=== PATIENT | male | born 1935 | race Caucasian/White ===

== ENCOUNTER → 2016-11-09 | Outpatient (CLI) | payer OTHER, BC | LOC: BMCIMAGING 10:47 | PROVIDERS: ATTEND Physician Assistant | DX: S89.92XA Unspecified injury of left lower leg, initial encounter (principal) ==

== ENCOUNTER 2017-01-22 16:01 | Inpatient (IN) | payer OTHER, BC ==
[2017-01-22] MEDS ORDERED: NS 500 ML IV ONE ×2 (16:30→19:17)
[2017-01-22 16:34] LABS: PLATELET COUNT 272 10^3/uL (150-400)
--- NOTE | 2017-01-22 16:36 | CPEKG ---
Heart Rate: 91 RR Interval: 659 P-R Interval: 148 QRSD Interval: 100 QT Interval: 365 QTC Interval: 450 P [place]: 48 QRS [place]: 36 T Wave [place]: -23 EKG Severity - NORMAL ECG - EKG Impression: SINUS RHYTHM Electronically Signed By: Loc Cain 23-Jan-2017 00:06:33
--- NOTE | 2017-01-22 16:43 | EDPHY ---
H & P Time Seen by Provider: 01/22/17 16:26 HPI/ROS: HPI Altered mental status. 81-year-old male by private vehicle. This patient lives in a private residence by himself. He has a son and anlmughi-qi-fap who live in town near him. He drives and is very independent, active and alert and oriented at baseline. surplus property disposal agent called his son telling his son that he has not heard from the patient in 3-4 days. With son off arises probably manager fine dining to enter his apartment. The patient was apparently found in bed. He is now confused. Oriented to person only. He denies any loss of sensation or weakness in his extremities. No chest pain. No headache. No changes in vision. He denies any other complaints. ROS: Constitutional: No fever, no chills. As above. Eyes: No discharge. No changes in vision. ENT: No sore throat. No nasal congestion or rhinorrhea. Respiratory: No cough. No shortness of breath. Cardiac: No chest pain, no palpitations. Gastrointestinal: No abdominal pain, no vomiting, no diarrhea. Genitourinary: No hematuria. No dysuria or increased frequency with urination. Musculoskeletal: No back pain. No neck pain. No myalgias or arthralgias. Skin: No rashes. Neurological: No headache. No focal weakness or altered sensation. Past medical history: Prostate cancer, peripheral neuropathy. Social history: Nonsmoker. No alcohol. As above. Physical Exam: General Appearance: Alert, no distress. This patient is responding to questions appropriately and in full sentences. He follows commands appropriately. He is alert to person but not place and time. This patient appears well-hydrated and well-nourished. Eyes: Pupils equal and round at 3-2 mm bilaterally, no pallor or injection. No lid edema, erythema or injection. ENT, Mouth: Mucous membranes are moist. The pharyngeal tissues are unremarkable. No edema or swelling. No asymmetry suggestive of abscess. No erythema or exudates. Respiratory: There are no retractions, lungs are clear to auscultation with good air movement bilaterally. Cardiovascular: Regular rate and rhythm. No murmur. Gastrointestinal: Abdomen is soft and nontender, no masses, bowel sounds normal. No focal tenderness at McBurney's point. No Ojeda sign. Neurological: Motor sensory function is grossly intact. Cranial nerves are normal. Gait is normal. Skin: Warm and dry, no rashes. Musculoskeletal: Neck is supple and nontender. Extremities are symmetrical. All joints range without pain or impingement. Psychiatric: No agitation. No depression. Database: EKG: EKG time is 4:34 p.m.; EKG shows a narrow complex normal sinus rhythm with a ventricular rate of 91. The TX, QRS, QT intervals are within normal limits. There are no ST-T wave changes indicative of ischemic or injury pattern. No evidence of right heart strain. Interpreted by me. Imaging: CT head without contrast: Age-related findings. No acute pathology. Results were discussed with staff radiologist Dr. Miguel Cook. MRI of brain without contrast: Age-related changes. No acute pathology. Results discussed with staff radiologist Dr. Nba Licona. Chest x-ray AP portable; the cardiac mediastinal silhouette is unremarkable. No evidence of infiltrate or pneumothorax. No acute cardiopulmonary disease process noted. Interpreted by me. Procedures: Emergency department course: IV placed. Vital signs reviewed. He was started on IV normal saline with 500 cc to be given over the next hour. 6:50 p.m., patient re-evaluated. He seems to be improving. He is of alert and oriented to person and place at this time. He is following commands appropriately. Results of CT scan and emergency department workup discussed with him and family. All of their questions were answered. 7:15 p.m., spoke with on-call hospitalist. Case discussed in detail with him. Patient accepted for admission to the hospitalist service. Patient received a L of IV normal saline in the emergency department. A noncontrast MRI of his brain has been ordered. This will be followed up on by the hospitalist service. Patient admitted to the hospitalist service in stable and improved condition. Hospitalist notified of MRI results. Differential Diagnosis: The differential diagnosis on this patient includes but is not limited to CVA, toxic metabolic. Meningitis, encephalitis, infectious, traumatic etiology unlikely. This represents a partial list of diagnoses considered. These considerations are based on history, physical exam, past history, reassessment and diagnostic testing. Smoking Status: Never smoked Constitutional: Initial Vital Signs Temperature (C) 36.2 C 01/22/17 16:05 Heart Rate 100 01/22/17 16:05 Respiratory Rate 20 01/22/17 16:05 Blood Pressure 158/82 H 01/22/17 16:05 O2 Sat (%) 95 01/22/17 16:05 O2 Delivery Mode Room Air Allergies/Adverse Reactions: No Known Allergies Allergy (Verified 01/22/17 16:05) Home Medications: Medication Instructions Recorded CELECOXIB [Celebrex] 100 mg PO 09/22/10 Gabapentin [Neurontin] 300 mg PO 09/22/10 Tamsulosin HCl [Flomax] 0.4 mg PO DAILY8 09/22/10 Tramadol HCl [Rybix Odt] 50 mg PO 09/22/10 ALPRAZolam [Xanax] 0 mg PO 11/08/11 Diphenhydramine Citrate [Benadryl] 0 mg PO 11/08/11 Hydrochlorothiazide 0 mg PO DAILY 11/08/11 [Hydrochlorothiazide 12.5 MG (RX)] Lisinopril 0 mg PO 11/08/11 Tamsulosin HCl [Flomax 0.4 MG (RX)] 0.4 mg PO DAILY8 11/08/11 Medical Decision Making - Diagnostics Imaging Results: Imaging Impressions Chest X-Ray 01/22/17 16:31 Impression: Stable negative portable chest. Head CT 01/22/17 16:31 Impression: Diffuse cortical atrophy. No focal lesion is identified. I telephoned results to Dr. Cain at 1716 hours. - Data Points Laboratory Results: Laboratory Results 01/22/17 16:20 01/22/17 16:20 01/22/17 01/22/17 01/22/17 17:45 16:20 16:20 WBC RBC Hgb POC Hgb Hct POC Hct MCV MCH MCHC RDW Plt Count MPV Neut % (Auto) Lymph % (Auto) [place] % (Auto) Eos % (Auto) Baso % (Auto) Nucleat RBC Rel Count Absolute Neuts (auto) Absolute Lymphs (auto) Absolute Monos (auto) Absolute Eos (auto) Absolute Basos (auto) Absolute Nucleated RBC Immature Gran % Immature Gran # PT 14.7 SEC SEC (12.0-15.0) INR 1.15 (0.83-1.16) APTT 28.6 SEC SEC (23.0-38.0) POC Sodium Sodium POC Potassium Potassium POC Chloride Chloride Carbon Dioxide Anion Gap POC BUN BUN Creatinine POC Creatinine Estimated GFR Glucose POC Glucose Calcium Creatine Kinase CK-MB (CK-2) Fraction CK-MB (CK-2) % Creatine Kinase Interp Troponin I Urine Color JULI Urine Appearance HAZY Urine pH 5.0 (5.0-7.5) Ur Specific Rison 1.025 (1.002-1.030) Urine Protein 2+ H (NEGATIVE) Urine Ketones 1+ H (NEGATIVE) Urine Blood 3+ H (NEGATIVE) Urine Nitrate NEGATIVE (NEGATIVE) Urine Bilirubin NEGATIVE (NEGATIVE) Urine Urobilinogen 2.0 EU H EU (0.2-1.0) Ur Leukocyte Esterase NEGATIVE (NEGATIVE) Urine RBC 15-25 /hpf H /hpf (0-3) Urine WBC 1-3 /hpf /hpf (0-3) Ur Epithelial Cells TRACE /lpf /lpf (NONE-1+) Amorphous Sediment PRESENT /hpf /hpf (NONE-1+) Hyaline Casts 5-15 /lpf /lpf (0-1) Urine Mucus 3+ /lpf H /lpf (NONE-1+) Urine Glucose 1+ H (NEGATIVE) Urine Opiates Screen NEGATIVE (NEGATIVE) Urine Barbiturates NEGATIVE (NEGATIVE) Ur Phencyclidine Scrn NEGATIVE (NEGATIVE) Ur Amphetamine Screen NEGATIVE (NEGATIVE) U Benzodiazepines Scrn NEGATIVE (NEGATIVE) Urine Cocaine Screen NEGATIVE (NEGATIVE) U Marijuana (THC) Screen NEGATIVE (NEGATIVE) Ethyl Alcohol < 10 mg/dL mg/dL (0-10) 01/22/17 01/22/17 01/22/17 16:20 16:20 16:17 WBC 11.75 10^3/uL H 10^3/uL (3.80-9.50) RBC 4.98 10^6/uL 10^6/uL (4.40-6.38) Hgb 16.6 g/dL g/dL (13.7-17.5) POC Hgb 16.7 gm/dL gm/dL (13.7-17.5) Hct 46.1 % % (40.0-51.0) POC Hct 49 % % (40-51) MCV 92.6 fL fL (81.5-99.8) MCH 33.3 pg pg (27.9-34.1) MCHC 36.0 g/dL g/dL (32.4-36.7) RDW 13.4 % % (11.5-15.2) Plt Count 272 10^3/uL 10^3/uL (150-400) MPV 10.0 fL fL (8.7-11.7) Neut % (Auto) 80.5 % H % (39.3-74.2) Lymph % (Auto) 11.0 % L % (15.0-45.0) [place] % (Auto) 7.3 % % (4.5-13.0) Eos % (Auto) 0.4 % L % (0.6-7.6) Baso % (Auto) 0.4 % % (0.3-1.7) Nucleat RBC Rel Count 0.0 % % (0.0-0.2) Absolute Neuts (auto) 9.45 10^3/uL H 10^3/uL (1.70-6.50) Absolute Lymphs (auto) 1.29 10^3/uL 10^3/uL (1.00-3.00) Absolute Monos (auto) 0.86 10^3/uL H 10^3/uL (0.30-0.80) Absolute Eos (auto) 0.05 10^3/uL 10^3/uL (0.03-0.40) Absolute Basos (auto) 0.05 10^3/uL 10^3/uL (0.02-0.10) Absolute Nucleated RBC 0.00 10^3/uL 10^3/uL (0-0.01) Immature Gran % 0.4 % % (0.0-1.1) Immature Gran # 0.05 10^3/uL 10^3/uL (0.00-0.10) PT INR APTT POC Sodium 141 mEq/L mEq/L (134-144) Sodium 141 mEq/L mEq/L (134-144) POC Potassium 3.3 mEq/L mEq/L (3.3-5.0) Potassium 3.7 mEq/L mEq/L (3.5-5.2) POC Chloride 102 mEq/L mEq/L (97-110) Chloride 100 mEq/L mEq/L (97-110) Carbon Dioxide 19 mEq/l L mEq/l (22-31) Anion Gap 22 mEq/L H mEq/L (8-16) POC BUN 37 mg/dL H mg/dL (7-23) BUN 37 mg/dL H mg/dL (7-23) Creatinine 1.1 mg/dL mg/dL (0.7-1.3) POC Creatinine 1.2 mg/dL mg/dL (0.7-1.3) Estimated GFR > 60 Glucose 153 mg/dL H mg/dL (70-100) POC Glucose 158 mg/dL H mg/dL (70-100) Calcium 9.3 mg/dL mg/dL (8.5-10.4) Creatine Kinase 1506 IU/L H IU/L (0-224) CK-MB (CK-2) Fraction 17.40 ng/mL H ng/mL (0.00-3.19) CK-MB (CK-2) % 1.2 % % (0.0-4.0) Creatine Kinase Interp NEGATIVE (NEGATIVE) Troponin I 0.022 ng/mL ng/mL (0.000-0.034) Urine Color Urine Appearance Urine pH Ur Specific Rison Urine Protein Urine Ketones Urine Blood Urine Nitrate Urine Bilirubin Urine Urobilinogen Ur Leukocyte Esterase Urine RBC Urine WBC Ur Epithelial Cells Amorphous Sediment Hyaline Casts Urine Mucus Urine Glucose Urine Opiates Screen Urine Barbiturates Ur Phencyclidine Scrn Ur Amphetamine Screen U Benzodiazepines Scrn Urine Cocaine Screen U Marijuana (THC) Screen Ethyl Alcohol Medications Given: Discontinued Medications Sodium Chloride (Ns) 500 mls @ 0 mls/hr IV ONCE ONE; Wide Open PRN Reason: Protocol Stop: 01/22/17 16:31 Last Admin: 01/22/17 16:36 Dose: 500 mls Sodium Chloride (Ns) 500 mls @ 1,000 mls/hr IV EDNOW ONE PRN Reason: Protocol Stop: 01/22/17 19:46 Last Admin: 01/22/17 20:20 Dose: 500 mls Point of Care Test Results: 01/22/17 16:17 POC Sodium 141 POC Potassium 3.3 POC Chloride 102 POC BUN 37 H POC Creatinine 1.2 POC Glucose 158 H Departure - Departure Disposition: [facility] Inpatient Acute Clinical Impression: Altered mental status
[2017-01-22 16:47] LABS: INR 1.15 (0.83-1.16); PROTIME(PATIENT) 14.7 SEC (12.0-15.0)
[2017-01-22 16:54] LABS: CREATINE KINASE 1506 IU/L (0-224)
[2017-01-22] MEDS ORDERED: ACETAMINOPHEN 325 MG TAB PO PRN (22:19)
[2017-01-22] MEDS ORDERED: ACETAMINOPHEN 650 MG SUPP PR PRN (22:19)
[2017-01-22] MEDS ORDERED: ONDANSETRON 4 MG/2 ML VIAL IVP PRN (22:19)
[2017-01-22] MEDS ORDERED: PROTOCOL POTASSIUM 1 DOSE MISC PRN (23:44)
[2017-01-22] MEDS ORDERED: PROTOCOL MAGNESIUM 1 DOSE IV PRN (23:44)
[2017-01-23 00:08] LABS: CREATINE KINASE 1168 IU/L (0-224)
--- NOTE | 2017-01-23 00:51 | GHP ---
[f rep st] HISTORY AND PHYSICAL DATE OF ADMISSION: 01/22/2017 SOURCE: Patient admitted with altered mental status, which persists. Majority of the history is obt ained from discussion with patient's son and [id number] at bedside. The patient able to contrib [place] some review of systems and past medical history. CHIEF COMPLAINT: Confusion. HISTORY OF PRESENT ILLNESS: This is a very pleasant 81-year-old gentleman with past medical history significant for remote history of prostate cancer, peripheral neuropathy, hypertension, chronic pain due to arthritis and otherwise quite independent and normally oriented x4, presents to the emergency department today via private vehicle with his family for confusion. The patient was last seen on the and was in his normal state of health. It is son reports that he talked with his granddaughter on the telephone and did not have any evidence of confusion at that time. The patient had previousl y agreed to take his elderly neighbor, who lives in the apartment above him, to her medical appointme nt. When he did not appear, she called the retail property manager who entered the patient's residence and found him lying in bed, confused. Son and daughter arrived to patient at home, still lying in bed, q uite confused. He was not oriented to his name, but was able to identify his son and nctyxzik-qz-wwp by name and asked about his grand-kids. He was able to ambulate independently, did not show any foc al signs. No facial drooping, but was still quite confused and could not figure out how to even clot he himself. After further discussion, patient has reported several days of loose stools. He has bee n wearing an adult pad. Son states that there is no evidence of patient soiling the bed and appears that he has been getting up and leaving the pads in the bathroom. It is an unclear if the patient lozano s been taking any of his chronic medications in the last several days. REVIEW OF SYSTEMS: GENERAL: Patient denies any fevers or chills. SKIN: No new rashes, sores. ENT : Patient denies any sore throat or rhinorrhea. EYES: Patient denies any acute changes in vision. Wears glasses. CV: The patient denies any chest pain, palpitations, orthopnea, lower extremity michele ma. RESPIRATORY: Patient denies any cough, shortness of breath. GASTROINTESTINAL: Positive for di arrhea. No melena or hematochezia. No nausea, vomiting, or abdominal pain. : No dysuria or erin turia. MUSCULOSKELETAL: Patient with history of knee pain, osteoarthritis, but denies any acute alf n active at this time. No myalgias. NEURO: Patient denies any headaches, changes in vision, numbne ss, tingling. Does have a history of peripheral neuropathy. PSYCH: Patient admits that he feels co nfused. He is a little restless and wants to sleep. ALLERGIES: No known drug allergies. HOME MEDICATIONS: Per EMR as patient and family not able to verify, but son reports that there was a list in his wallet, which he provided to staff. 1. Tramadol 100 mg p.o. t.i.d. 2. Celebrex 200 mg p.o. daily p.r.n. 3. Lisinopril/HCTZ 10/12.5 mg p.o. daily. 4. Gabapentin 300 mg p.o. t.i.d. PAST MEDICAL HISTORY: Significant for prostate cancer, peripheral neuropathy, hypertension, chronic pain, osteoarthritis. PAST SURGICAL HISTORY: The patient and son deny. FAMILY HISTORY: No known chronic medical problems in the family including hypertension, diabetes. T he son is healthy. SOCIAL HISTORY: Patient lives alone in his own apartment. He does not smoke, drink or do drugs. 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 Ambulates independently. No home oxygen. CODE STATUS: At this time, is full. Son is not sure on specifics regarding patient's advanced direc tives. PHYSICAL EXAMINATION: VITAL SIGNS: Upon arrival to the ER, blood pressure 158/82, heart rate is 100 , respiratory rate 20, O2 saturation 94% on room air, with temperature 36.2. Current vitals: Blood pressure 172/80, heart rate is 88, respiratory rate 16, O2 sats 95% on room air, temperature 36.8. G ENERAL: No acute distress. Pleasant elderly gentleman is sitting up on the edge of the bed. He arboleda s appear a little restless, confused, but is still interactive and aware that he is confused. He arboleda s ask appropriately regarding what is the next step in figuring out and treating his current illness. HEAD: Normocephalic, atraumatic. EYES: Extraocular muscles are intact. Pupils equal, round. Sl ightly decreased reactivity to light bilaterally but symmetric. No scleral icterus or conjunctival i njection. ENT: Mucous membranes appear slightly dry. No oropharyngeal erythema or exudates. NECK: Supple. Trachea midline. CV: Slightly tachycardic in the high 90s to low 100s. Regular rate and rhythm. No murmurs, rubs, or gallops appreciated. RESPIRATORY: Lungs are clear to auscultation bi laterally. No wheezes, rales, or rhonchi. No increased work of breathing. ABDOMEN: Positive bowel sounds. Soft. Nontender to palpation. No rebound, guarding, or masses appreciated. : No Hanson in place. No suprapubic tenderness to palpation. EXTREMITIES: No cyanosis, clubbing or edema appr eciated. 1+ pedal pulses bilaterally. Strength 5/5 in upper and lower extremities bilaterally and s ymmetric. Moves all extremities. Sits up independently. NEURO: The patient with slight tremor in his upper extremities, but no focal weakness or deficits noted. Cranial nerves 2-12 are intact, symm etric bilaterally. Sensation intact to upper and lower extremities. PSYCH: Patient is awake, alert , oriented to person and place only, not to time or reason for current hospitalization. States for brandee hensonkeo questions, "I don't know," particularly regarding HPI. He does appear a little bit restless but he is not agitated. Is complaining of wanting to go to sleep. He is cooperative. LABORATORY STUDIES: Initially in the emergency department: WBC 11.75, H and H 16.6 and 46.1, MCV of 92.6, platelet count 272 with 80.5% neutrophils, no bands. PT/INR is 14.7 and 1.15. PTT is 28.6. Lactic acid 2.0. VBG: pH is 7.41 with a bicarb of 20, CO2 21, O2 saturation 79, base excess -2.9, pCO2 is 33, pO2 is 46. Initial BMP in the ER: Sodium 141, potassium 3.7, chloride 100, CO2 of 19, anion gap 22, BUN 37, cre atinine 1.1. GFR greater than 60. Glucose 153, calcium 9.3. CK is 1506. CK-MB 17.4. Troponin was negative. Repeat CMP: Sodium 140, potassium 3.3, chloride is 103, CO2 is 19, anion gap 18, BUN 38, creatinine 1.0, glucose 123, calcium 8.9, total bilirubin is 1.4, ALT is 51, AST 79, alkaline phosphatase 52. C K repeat pending. CK-MB 12.6. Repeat troponin 0.033. Total protein 6.6, albumin 4.3. TSH is pendi ng. UA with specific gravity 1.025, pH is 5.0, 2+ protein, 1+ ketone, blood 3+, negative nitrites, negati ve leukocyte esterase, RBCs 15-25, mucus 3+, glucose 1+. Tox screen negative and alcohol levels negative. EKG, reviewed by myself, shows sinus rhythm in the 90s with QTc of 450. There is very minimal ST dep ression apparent in lateral leads. No acute ST elevations. No Q-waves. There is diffuse artifact i n multiple leads but patient is in sinus rhythm. His telemetry strip on the floor was reviewed. He has had a few PVCs as well as 2 episodes of 1-2 se cond pauses but otherwise in sinus. CT head report and image reviewed. Diffuse cortical atrophy. No focal lesion identified. MRI report negative for any acute intracranial hemorrhage, subdural hematoma or ischemia. Moderate a trophy. Diffuse moderate supratentorial white matter disease. ASSESSMENT AND PLAN: A pleasant 81-year-old gentleman normally oriented x4, presents with family for up to 2 days of confusion without any focal deficits. 1. Altered mental status, likely metabolic encephalopathy with evidence of anion gap. Patient is no t currently acidotic. Anion gap has improved with IV fluids. This likely related to dehydration and possibly polypharmacy as patient is currently on tramadol t.i.d. but it is unclear if he has been ta mary this scheduled or p.r.n. He is also on gabapentin. He does appear dehydrated and status post I V fluid in the emergency department with some improvement in mentation. We will plan to continue IV fluids overnight and encourage oral supplementation as tolerated. At this time patient is restless a nd still a little confused, we will assist with IV fluids. We will plan to repeat BMP in the morning . The patient has reported several days of diarrhea and has had episode of incontinence. No evidenc e of bleeding. He does show signs of dehydration and this may have worsened the effects of clearance of his pain medications. We will hold any sedatives and potentially altering medications at this ti me. 2. Diarrhea. The patient without any recent history of antibiotics. No other known sick contacts. He has had 1 episode of incontinence. He is afebrile without significant elevation in white count a nd certainly not above 12,000. We will monitor at this time. No previous history of Clostridium dif ficile. 3. Hypokalemia. Electrolyte replacement. Likely due to gastrointestinal losses. 4. Dehydration. 5. Acute kidney injury. The patient's creatinine slightly improved after initial fluids. We will c ontinue IV fluids overnight as noted above and repeat BMP in the morning. 6. Microscopic hematuria. Patient does have history of prostate cancer. We will have him follow up with PCP on outpatient basis. Not likely contributing to his current confusion. 7. Fluid, electrolyte, nutrition. Continue IV fluids, gentle hydration. Encourage oral intake as w soraya. Patient may need some direction until his mentation does clear. Diet will be regular as yoselyn holcomb. He will also be put on electrolyte replacement protocol. 8. Prophylaxis: SCDs and Lovenox. 9. Code status: Full at this time. Son is planning to review patient's advanced directives at home if available. DISPOSITION: Patient admitted to observation on the medical floor at this time pending further evalu ation of his repeat labs after some hydration. /[id number]/MODL
[2017-01-23] MEDS: NS 1,000 ML IV SCH ×2 (01:44→16:03)
[2017-01-23 06:48] LABS: CREATINE KINASE 1101 IU/L (0-224)
[2017-01-23 08:31] LABS: PLATELET COUNT 235 10^3/uL (150-400)
[2017-01-23] MEDS ORDERED: POTASSIUM CL 10 MEQ TAB PO ONE ×2 (08:57→20:04)
--- NOTE | 2017-01-23 09:44 | HOSPPROG ---
Hospitalist Progress Note Assessment/Plan: Acute encephalopathy - suspect toxic/metabolic. Had been on high dose tramadol 100 mg TID, along with gabapentin, both of which are held. +atrophy on brain MRI. Still confused today. -cont to hold centrally sedating meds -PT/OT -speech for cog eval AGMA - Suspect bicarb loss from diarrhea, improving with IVF's. Gap nearly resolved. -cont NS RC / Azotemia - cont IVF's Rhabdo - mild, improving with IVF's Diarrhea - send GI pathogen panel Neuropathy - holding gabapentin for now Microscopic hematuria with h/o prostate cancer - outpt urology f/u Chronic pain 2/2 arthritis - revisit pain meds, try non-opiate modalities -lidoderm patch -scheduled tylenol Hypertension - resume lisinopril/hctz Hypokalemia - GI losses plus HCTZ. Replace, follow DVT PPLX - lovenox Dispo - change to inpt for ongoing management of acidosis and encephalopathy, along with acute PT/OT needs Subjective: Pt is still a bit confused, but denies pain. No lozano or vision changes. He doesn't recall the events leading up to hospitalization. Objective: Vital Signs Temp Pulse Resp BP Pulse Ox 36.8 C 86 19 157/83 H 96 01/23/17 08:00 01/23/17 08:00 01/23/17 08:00 01/23/17 08:00 01/23/17 08:01 Laboratory Results 01/23/17 08:04 01/23/17 06:03 01/22/17 01/23/17 01/24/17 05:59 05:59 04:59 Intake Total 600 500 Balance 600 500 PT 14.7 SEC (12.0-15.0) 01/22/17 16:20 INR 1.15 (0.83-1.16) 01/22/17 16:20 - Physical Exam Constitutional: no apparent distress Eyes: PERRL Ears, Nose, Mouth, Throat: moist mucous membranes Cardiovascular: regular rate and rhythym Respiratory: no respiratory distress Gastrointestinal: normoactive bowel sounds, soft, non-tender abdomen Skin: warm Psychiatric: encephalopathic ICD10 Worksheet Patient Problems: Problems Problem Status Onset Altered mental status Acute
--- NOTE | 2017-01-23 10:36 | PDMN ---
Medical Necessity Medical necessity: C/M review: est. > 2 MN LOS for eval and TX of acute and persistent encephalopathy - toxic/metabolic suspected, anion gap metabolic acidosis, acute kidney injury, rhabdomyolysis, diarrhea, hypokalemia requiring ongoing IV fluids, hold sedating medications, electrolyte replacement and monitoring, cardiac monitoring, pulse oximetry, acute inpt PT/OT/ST, comorbid neuropathy, chronic pain secondary to arthritis, hypertension per 01/23/2017 Hospitalist progress note.
[2017-01-23] MEDS: LISINOPRIL/HCTZ 10/12.5 MG 1 EA TAB PO SCH (11:02)
[2017-01-23] MEDS: POTASSIUM CL 20 MEQ TAB PO SCH (11:03)
[2017-01-23] MEDS: ENOXAPARIN 40 MG/0.4 ML SYR SC SCH (11:08)
[2017-01-23] MEDS: LIDOCAINE 5% 1 EA PATCH TD SCH (11:48)
--- NOTE | 2017-01-23 18:09 | ASMTCMCOM ---
CM Note CM Note Notes: Reviewed chart for discharge plan, pt's progress. Pt admitted w/ acute encephalopathy and acidosis, poss metabolic vs medication toxicity. Pt lives alone in an apartment; son and [id number] involved. PT rec home; OT rec home care vs SNF. Discharge needs remain TBD at this time. Pt confused today. CM will cont to follow for any potential needs. Current Discharge Plan: To be determined Date Signed: 01/23/2017 06:08 PM Electronically Signed By:Michelle Griggs RN
--- NOTE | 2017-01-23 18:09 | ASMTCMCOM ---
CM Note CM Note Notes: Reviewed chart for discharge plan, pt's progress. Pt admitted w/ acute encephalopathy and acidosis, poss metabolic vs medication toxicity. Pt lives alone in an apartment; son and [id number] involved. PT rec home; OT rec home care vs SNF. Discharge needs remain TBD at this time. Pt confused today. CM will cont to follow for any potential needs. Current Discharge Plan: To be determined Date Signed: 01/23/2017 06:08 PM Electronically Signed By:Michelle Griggs RN
--- NOTE | 2017-01-23 18:09 | ASMTCMCOM ---
CM Note CM Note Notes: Reviewed chart for discharge plan, pt's progress. Pt admitted w/ acute encephalopathy and acidosis, poss metabolic vs medication toxicity. Pt lives alone in an apartment; son and srprb-[id number] involved. PT rec home; OT rec home care vs SNF. Discharge needs remain TBD at this time. Pt confused today. CM will cont to follow for any potential needs. Current Discharge Plan: To be determined Date Signed: 01/23/2017 06:08 PM Electronically Signed By:Michelle Griggs RN
[2017-01-23] MEDS: PATCH REMOVAL 1 EA PATCH TD SCH (20:21)
[2017-01-24 04:53] LABS: CREATINE KINASE 525 IU/L (0-224)
[2017-01-24] MEDS ORDERED: POTASSIUM CL 10 MEQ TAB PO ONE (08:18)
[2017-01-24] MEDS: POTASSIUM CL 20 MEQ TAB PO SCH (09:08)
[2017-01-24] MEDS: LIDOCAINE 5% 1 EA PATCH TD SCH (09:08)
[2017-01-24] MEDS: LISINOPRIL/HCTZ 10/12.5 MG 1 EA TAB PO SCH (09:09)
[2017-01-24] MEDS: ENOXAPARIN 40 MG/0.4 ML SYR SC SCH (09:10)
--- NOTE | 2017-01-24 10:47 | HOSPPROG ---
Hospitalist Progress Note Assessment/Plan: Acute encephalopathy - resolved. Likely related to volume depletion, ? medication toxicity with Tramadol. Mod brain atrophy on MRI. He is now awake and profoundly depressed. Depression - Needs psych eval. This likely prompted his presentation. It sounds like he aimed to close his eyes at home, stop eating and drinking and let himself . He denies active suicide intent at this time. He feels ready to , but is not actively dying. -[facility] consult / psychiatric eval planned for med management -I attempted to reach [facility] by phone on 6 separate occassions today, no answer. Also paged [facility], no response. -Placed psychiatry consult and asked nurse to continue to try to reach [facility] Moderate cognitive impairment - on MoCa, likely affected by his depression. AGMA - Likely due to volume depletion, resolved with IVF's RC / Azotemia - pre-renal, resolved with IVF's Rhabdo - mild, improved with IVF's Diarrhea - send GI pathogen panel Neuropathy - holding gabapentin Microscopic hematuria with h/o prostate cancer - outpt urology f/u Chronic pain 2/2 arthritis - revisit pain meds, try non-opiate modalities -lidoderm patch -scheduled tylenol Hypertension - resume lisinopril/hctz Hypokalemia - GI losses plus HCTZ. Replace, follow DVT PPLX - lovenox Dispo - cont inpt. Psych eval planned. Subjective: Pt is very depressed. Says he wants to close his eyes and "go home ". He then explains he is ready to . He stopped eating and drinking at home. No fevers. No pain. Objective: Vital Signs Temp Pulse Resp BP Pulse Ox 36.5 C 77 19 147/87 H 95 01/24/17 07:21 01/24/17 07:21 01/24/17 07:21 01/24/17 09:09 01/24/17 07:21 Laboratory Results 01/24/17 04:26 01/23/17 01/24/17 01/25/17 06:59 05:59 05:59 Intake Total Output Total 500 Balance -500 PT 14.7 SEC (12.0-15.0) 01/22/17 16:20 INR 1.15 (0.83-1.16) 01/22/17 16:20 - Physical Exam Constitutional: no apparent distress Eyes: PERRL Ears, Nose, Mouth, Throat: moist mucous membranes Cardiovascular: regular rate and rhythym, no murmur, rub, or gallop Respiratory: no respiratory distress, clear to auscultation Gastrointestinal: normoactive bowel sounds, soft, non-tender abdomen Skin: warm Musculoskeletal: full muscle strength Neurologic: AAOx3 Psychiatric: interacting appropriately ICD10 Worksheet Patient Problems: Problems Problem Status Onset Altered mental status Acute
--- NOTE | 2017-01-24 14:01 | ASMTCMCOM ---
CM Note CM Note Notes: Pt admitted w/ acute encephalopathy. Pt has cleared today. Dr Wiggins states pt is profoundly depressed and had stopped eating and drinking because he "wants to ." Dr Wiggins made a psych eval for med mgmt. Pt lives alone in an apartment; son and xwbov-tu-[id number] involved. PT rec homecare, OT rec home care vs SNF and ST rec inpt rehab. Discharge needs remain TBD at this time. CM will wait for psych eval. CM will cont to follow for any potential needs. Date Signed: 01/24/2017 02:00 PM Electronically Signed By:Sandra Edmonds LCSW
--- NOTE | 2017-01-24 14:01 | ASMTCMCOM ---
CM Note CM Note Notes: Pt admitted w/ acute encephalopathy. Pt has cleared today. Dr Wiggins states pt is profoundly depressed and had stopped eating and drinking because he "wants to ." Dr Wiggins made a psych eval for med mgmt. Pt lives alone in an apartment; son and [id number]-[id number] involved. PT rec homecare, OT rec home care vs SNF and ST rec inpt rehab. Discharge needs remain TBD at this time. CM will wait for psych eval. CM will cont to follow for any potential needs. Date Signed: 01/24/2017 02:00 PM Electronically Signed By:Sandra Edmonds LCSW
--- NOTE | 2017-01-24 14:01 | ASMTCMCOM ---
CM Note CM Note Notes: Pt admitted w/ acute encephalopathy. Pt has cleared today. Dr Wiggins states pt is profoundly depressed and had stopped eating and drinking because he "wants to ." Dr Wiggins made a psych eval for med mgmt. Pt lives alone in an apartment; son and [id number]-hp-vjn involved. PT rec homecare, OT rec home care vs SNF and ST rec inpt rehab. Discharge needs remain TBD at this time. CM will wait for psych eval. CM will cont to follow for any potential needs. Date Signed: 01/24/2017 02:00 PM Electronically Signed By:Sandra Edmonds LCSW
[2017-01-24] MEDS: PATCH REMOVAL 1 EA PATCH TD SCH (21:58)
[2017-01-25] MEDS ORDERED: traZODone 50 MG TAB PO ONE ×2 (00:30→23:13)
[2017-01-25] MEDS ORDERED: POTASSIUM CL 10 MEQ TAB PO ONE (09:35)
[2017-01-25] MEDS: POTASSIUM CL 20 MEQ TAB PO SCH (09:49)
[2017-01-25] MEDS: ENOXAPARIN 40 MG/0.4 ML SYR SC SCH (09:50)
[2017-01-25] MEDS: LIDOCAINE 5% 1 EA PATCH TD SCH (09:50)
[2017-01-25] MEDS: LISINOPRIL/HCTZ 10/12.5 MG 1 EA TAB PO SCH (09:50)
--- NOTE | 2017-01-25 15:45 | HOSPPROG ---
Hospitalist Progress Note Assessment/Plan: Acute encephalopathy - resolved. Likely related to volume depletion, ? medication toxicity with Tramadol. Mod brain atrophy on MRI. He is now awake and profoundly depressed. May have some underlying dementia. Depression - This likely prompted his presentation. It sounds like he aimed to close his eyes at home, stop eating and drinking and let himself . He denies active suicide intent at this time. He feels ready to , but is not actively dying. -psych consult today, awaiting medication recommendations Moderate cognitive impairment - on MoCa, likely affected by his depression. -Pt is followed by Dr. Billy Keller as outpt, will plan for outpt f/u AGMA - Likely due to volume depletion, resolved with IVF's RC / Azotemia - pre-renal, resolved with IVF's Rhabdo - mild, improved with IVF's Diarrhea - GI pathogen panel neg Neuropathy - will resume low dose gabapentin Microscopic hematuria with h/o prostate cancer - outpt urology f/u Chronic pain 2/2 arthritis - revisit pain meds, try non-opiate modalities. D/C tramadol -lidoderm patch -scheduled tylenol Hypertension - resume lisinopril/hctz Hypokalemia - GI losses plus HCTZ. Replace, follow DVT PPLX - lovenox Dispo - cont inpt. Discussed with case management, psychiatrist and pt's son. Pt will go live with his son for now, who can take him to outpt f/u appts with neurology and PCP. Will work on options for 24 hr supervision prior to discharge in am. Subjective: Pt feels better. He is ambulating in halls multiple times today with son. No fevers. No pain. Objective: Vital Signs Temp Pulse Resp BP Pulse Ox 36.7 C 93 19 138/71 H 95 01/25/17 11:38 01/25/17 11:38 01/25/17 11:38 01/25/17 11:38 01/25/17 11:38 Microbiology 01/24/17 06:30 Gastrointestinal Tract Panel (PCR) - Final Stool No Organism Detected Laboratory Results 01/25/17 04:27 01/24/17 01/25/17 01/26/17 05:59 05:59 05:59 Intake Total 1350 Output Total 500 Balance 850 PT 14.7 SEC (12.0-15.0) 01/22/17 16:20 INR 1.15 (0.83-1.16) 01/22/17 16:20 - Physical Exam Constitutional: no apparent distress Eyes: PERRL Ears, Nose, Mouth, Throat: moist mucous membranes Cardiovascular: regular rate and rhythym Respiratory: no respiratory distress Gastrointestinal: normoactive bowel sounds, soft, non-tender abdomen Skin: warm Musculoskeletal: full muscle strength Neurologic: AAOx3 Psychiatric: interacting appropriately, poor insight, poor judgement ICD10 Worksheet Patient Problems: Problems Problem Status Onset Altered mental status Acute
[2017-01-25 16:32] VITALS: TEMP 97.9
--- NOTE | 2017-01-25 16:48 | ASMTCMCOM ---
CM Note CM Note Notes: Psych did see pt today, recs pending. Pt d/c to son home, needs [facility] and 12/10 supervision. Attempted to reach son Jarod [phone], had to leave s on home ph and cell. Pt reports Jarod will be available in the morning. Pt likely d/c tomorow. CM to follow. Date Signed: 01/25/2017 04:47 PM Electronically Signed By:MILAGRO Manzanares
--- NOTE | 2017-01-25 16:48 | ASMTCMCOM ---
CM Note CM Note Notes: Psych did see pt today, recs pending. Pt d/c to son home, needs [facility] and 12/10 supervision. Attempted to reach son Jarod [phone], had to leave s on home ph and cell. Pt reports Jarod will be available in the morning. Pt likely d/c tomorow. CM to follow. Date Signed: 01/25/2017 04:47 PM Electronically Signed By:MILAGRO Manzanares
--- NOTE | 2017-01-25 16:48 | ASMTCMCOM ---
CM Note CM Note Notes: Psych did see pt today, recs pending. Pt d/c to son home, needs [facility] and 12/10 supervision. Attempted to reach son Jarod [phone], had to leave s on home ph and cell. Pt reports Jarod will be available in the morning. Pt likely d/c tomorow. CM to follow. Date Signed: 01/25/2017 04:47 PM Electronically Signed By:MILAGRO Manzanares
[2017-01-25] MEDS: PATCH REMOVAL 1 EA PATCH TD SCH (20:31)
[2017-01-25] MEDS ORDERED: traZODone 50 MG TAB PO SCH (21:00)
[2017-01-25 23:21] VITALS: BP 106/71; PULSE 81; RESP 16; O2SAT 94
--- NOTE | 2017-01-26 06:24 | PDCONSULT ---
Kier Operator Note: Psychiatry Consultation Date of request: 01/24/17. slurry control tender consultation requested by hospitalist service to evaluate for depression/suicidality. Date of evaluation: 01/25/17 Patient interviewed, also son Jarod, also review of EMR and discussion with staff. CC: "Because I didn't know which way was up when I came here," was patient response as to why here, and "it's just another specialty they have here" when asked why psychiatric eval requested. BRIEF HISTORY: 81yo CM with past psychiatric hx of depression admitted after found down and acutely encephalopathic presumed due to dehydration. Now improving and close to baseline per son Jarod (who was also present during interview). Patient has been living independently in his prison and helps neighbors but did not show up as expected to meet a neighbor and take her to an appointment, which prompted family to check in. Patient last recalls being in his bed, feeling restless. Son states all was normal last weekend (5 days prior) when patient joined their family for dinner. During interview, patient endorsed feeling depressed, and admitted "I've done a lot in my life...I'm ready to go home...what does that mean? I'm not going to DO anything...how would I do that?...But I do think, is this all there is?...I do anything...I don't have hobbies, I don't feel like doing anything..." When asked what would be different for him not to feel that way, he responded, "if I were still ...but that ended a while back..." Talked of his son Jarod having his family and children and being busy with his life, and listed several other losses, including his older brother Danish 15yr ago who was like a patriarch in the family, and having no contact with younger brother Manolo after a falling out at that time. 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 "I've done a lot in my life...but I could've done a lot more..." Consistently denied any plan or intent to harm himself. Has been caring for self independently. GERIATRIC DEPRESSION SCALE 7/15, which is suggestive of depression. Patient responded positively for having dropped many activities/interests, feeling his life was empty, often gets bored and helpless, preferring to stay home, not feeling full of energy, and not feeling it is wonderful to be alive now. Responses were also noting he did feel satisfied with his life and felt happy most of the time, and did not feel hopeless. Patient endorsed +depr mood, difficulty sleeping, +anhedonia, +/-guilt, low energy, +passive suicidal thoughts, +helpless, +/-worthless, but not hopeless feelings. It was not clear how his appetite has been or concentration, altho both seem decreased. He denied any psychotic symptoms or history of such, and denied feeling anxious. He believes he is "sharp as a tack" and did not feel he had any thinking or memory difficulties, despite MoCA score of 14/30 as per speech therapy evaluation. Son states he and are now realizing patient may not have been as independent as they had thought. 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 Patient stated, "I'm not sure, I don't think so" that he just stopped oral intake to passively. Seemed he had not taken medications for a few days prior to admission, however. No evidence for any over- or under- taking medications, nor any evidence or history of falls or other trauma. PAST PSYCHIATRIC HISTORY: No prior inpatient or outpatient psychiatric treatment, although per son has been treated for depression after brother 15 years ago, and thinks he's been on an antidepressant medication for a while to help sleep. No past history of attempts to harm self. *Researched with pharmacist- patient on TRAZODONE 100mg x 4 years as per [facility]. SUBSTANCE USE HISTORY: denied FAMILY PSYCHIATRIC HX: 1 son with depression (Jardo's brother). Patient's mother may have had depression as well. PAST MEDICAL HISTORY: peripheral neuropathy, past history of prostate CA, arthritis, HTN HOME MEDICATIONS: Tramadol 100mg tid, Gabapentin 300mg tid, Lisinopril/HCTZ, Celebrex also Trazodone 100mg QHS SOCIAL HISTORY: From [place], son of [place] immigrants, in [place] since 1962. Graduated [employer] in '60s. 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 Lives independently in senior housing. Extended family still in [place]. Has 2 sons. Son Clayton and his live nearby, with their 2 daughters ages 14,16 whom patient is very close to. since >40yrs. Oldest brother Danish 15yr ago (patient still tearful about this). Has 2 younger siblings, only maintains contact with one. Denies having any hobbies. Used to enjoy routine of taking granddaughters out for ice cream every Wednesday, no longer doing so because one drives now. ASSESSMENT: 81yo with apparent past psychiatric history of depression, admitted medically for encephalopathy related to metabolic changes and dehydration, no acute findings on brain MRI but with at least moderate atrophy. Clinically appears depressed and endorses some neurovegetative symptoms of depression, including passive suicidal ideation, but no plan/intent to harm himself. Depression can certainly worsen his cognition, with speech therapy scoring MoCA 14/30 on 01/24. DIAGNOSIS: Major Depressive Disorder, recurrent, severe Neurocognitive Disorder, unspecified RECOMMENDATIONS: -Does not meet criteria for M-1 involuntary psychiatric hold, or involuntary psychiatric hospitalization. -Son states he talked with his and both are realizing patient may not be doing as well living independently as they thought, and plan to have patient move into their home. Patient does state he is looking forward to this and is happy to do so. -Regarding medications, due to evidence of impaired cognition and elderly status , would avoid any medications which could potentially further impair cognition, including general categories of anticholinergics, narcotics, or benzodiazepines. In discussion with hospitalist , Tramadol 100mg tid has been discontinued. Also, Trazodone 100mg was not restarted on admission, but has been recently resumed at 50mg HS for sleep. I would support this for sleep, it is not going to be that beneficial for depression, however. -Recommend trial of Mirtazapine 7.5mg qhs for depression which will also help with sleep and appetite. Could start while inpatient or outpatient and follow- up with PCP. This can be up titrated to 15mg, and if beneficial, Trazodone could be tapered to discontinuation or just prn use to simplify medications. Would benefit from outpatient psychiatrist and outpatient therapy, if possible. -Recommend interval reassessment of cognition, seems notably improved as hospital course progressed, and reasonable to expect further improvements as patients mood improves. Also would help with determining baseline functioning when stable and baseline level of care needed, as recommendations varied from PT , OT, ST evaluations during current inpatient stay, including up to 12/10 supervision. -Recommend patient use a pill organizer. Son plans to supervise medications after discharge. -If suicidality increases or depression not improving with psychosocial modifications and medication changes, would have family contact mental health crisis or 911 or have patient return to ER for evaluation and consider for inpatient psychiatric treatment.
--- NOTE | 2017-01-26 06:24 | PDCONSULT ---
Sulfuric Acid Plant Operator Note: Psychiatry Consultation Date of request: 01/24/17. decatizer consultation requested by hospitalist service to evaluate for depression/suicidality. Date of evaluation: 01/25/17 Patient interviewed, also son Jarod, also review of EMR and discussion with staff. CC: "Because I didn't know which way was up when I came here," was patient response as to why here, and "it's just another specialty they have here" when asked why psychiatric eval requested. BRIEF HISTORY: 81yo CM with past psychiatric hx of depression admitted after found down and acutely encephalopathic presumed due to dehydration. Now improving and close to baseline per son Jarod (who was also present during interview). Patient has been living independently in his skilled nursing and helps neighbors but did not show up as expected to meet a neighbor and take her to an appointment, which prompted family to check in. Patient last recalls being in his bed, feeling restless. Son states all was normal last weekend (5 days prior) when patient joined their family for dinner. During interview, patient endorsed feeling depressed, and admitted "I've done a lot in my life...I'm ready to go home...what does that mean? I'm not going to DO anything...how would I do that?...But I do think, is this all there is?...I do anything...I don't have hobbies, I don't feel like doing anything..." When asked what would be different for him not to feel that way, he responded, "if I were still ...but that ended a while back..." Talked of his son Jarod having his family and children and being busy with his life, and listed several other losses, including his older brother Danish 15yr ago who was like a patriarch in the family, and having no contact with younger brother Manolo after a falling out at that time. 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 "I've done a lot in my life...but I could've done a lot more..." Consistently denied any plan or intent to harm himself. Has been caring for self independently. GERIATRIC DEPRESSION SCALE 7/15, which is suggestive of depression. Patient responded positively for having dropped many activities/interests, feeling his life was empty, often gets bored and helpless, preferring to stay home, not feeling full of energy, and not feeling it is wonderful to be alive now. Responses were also noting he did feel satisfied with his life and felt happy most of the time, and did not feel hopeless. Patient endorsed +depr mood, difficulty sleeping, +anhedonia, +/-guilt, low energy, +passive suicidal thoughts, +helpless, +/-worthless, but not hopeless feelings. It was not clear how his appetite has been or concentration, altho both seem decreased. He denied any psychotic symptoms or history of such, and denied feeling anxious. He believes he is "sharp as a tack" and did not feel he had any thinking or memory difficulties, despite MoCA score of 14/30 as per speech therapy evaluation. Son states he and are now realizing patient may not have been as independent as they had thought. 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 Patient stated, "I'm not sure, I don't think so" that he just stopped oral intake to passively. Seemed he had not taken medications for a few days prior to admission, however. No evidence for any over- or under- taking medications, nor any evidence or history of falls or other trauma. PAST PSYCHIATRIC HISTORY: No prior inpatient or outpatient psychiatric treatment, although per son has been treated for depression after brother 15 years ago, and thinks he's been on an antidepressant medication for a while to help sleep. No past history of attempts to harm self. *Researched with pharmacist- patient on TRAZODONE 100mg x 4 years as per [facility]. SUBSTANCE USE HISTORY: denied FAMILY PSYCHIATRIC HX: 1 son with depression (Jarod's brother). Patient's mother may have had depression as well. PAST MEDICAL HISTORY: peripheral neuropathy, past history of prostate CA, arthritis, HTN HOME MEDICATIONS: Tramadol 100mg tid, Gabapentin 300mg tid, Lisinopril/HCTZ, Celebrex also Trazodone 100mg QHS SOCIAL HISTORY: From [place], son of [place] immigrants, in [place] since 1962. Graduated [employer] in '60s. 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 Lives independently in senior housing. Extended family still in [place]. Has 2 sons. Son Clayton and his live nearby, with their 2 daughters ages 14,16 whom patient is very close to. since >40yrs. Oldest brother Danish 15yr ago (patient still tearful about this). Has 2 younger siblings, only maintains contact with one. Denies having any hobbies. Used to enjoy routine of taking granddaughters out for ice cream every Wednesday, no longer doing so because one drives now. ASSESSMENT: 81yo with apparent past psychiatric history of depression, admitted medically for encephalopathy related to metabolic changes and dehydration, no acute findings on brain MRI but with at least moderate atrophy. Clinically appears depressed and endorses some neurovegetative symptoms of depression, including passive suicidal ideation, but no plan/intent to harm himself. Depression can certainly worsen his cognition, with speech therapy scoring MoCA 14/30 on 01/24. DIAGNOSIS: Major Depressive Disorder, recurrent, severe Neurocognitive Disorder, unspecified RECOMMENDATIONS: -Does not meet criteria for M-1 involuntary psychiatric hold, or involuntary psychiatric hospitalization. -Son states he talked with his and both are realizing patient may not be doing as well living independently as they thought, and plan to have patient move into their home. Patient does state he is looking forward to this and is happy to do so. -Regarding medications, due to evidence of impaired cognition and elderly status , would avoid any medications which could potentially further impair cognition, including general categories of anticholinergics, narcotics, or benzodiazepines. In discussion with hospitalist , Tramadol 100mg tid has been discontinued. Also, Trazodone 100mg was not restarted on admission, but has been recently resumed at 50mg HS for sleep. I would support this for sleep, it is not going to be that beneficial for depression, however. -Recommend trial of Mirtazapine 7.5mg qhs for depression which will also help with sleep and appetite. Could start while inpatient or outpatient and follow- up with PCP. This can be up titrated to 15mg, and if beneficial, Trazodone could be tapered to discontinuation or just prn use to simplify medications. Would benefit from outpatient psychiatrist and outpatient therapy, if possible. -Recommend interval reassessment of cognition, seems notably improved as hospital course progressed, and reasonable to expect further improvements as patients mood improves. Also would help with determining baseline functioning when stable and baseline level of care needed, as recommendations varied from PT , OT, ST evaluations during current inpatient stay, including up to 12/10 supervision. -Recommend patient use a pill organizer. Son plans to supervise medications after discharge. -If suicidality increases or depression not improving with psychosocial modifications and medication changes, would have family contact mental health crisis or 911 or have patient return to ER for evaluation and consider for inpatient psychiatric treatment.
--- NOTE | 2017-01-26 06:24 | PDCONSULT ---
Secured Entrance Monitor Note: Psychiatry Consultation Date of request: 01/24/17. recorder gravity prospecting consultation requested by hospitalist service to evaluate for depression/suicidality. Date of evaluation: 01/25/17 Patient interviewed, also son Jarod, also review of EMR and discussion with staff. CC: "Because I didn't know which way was up when I came here," was patient response as to why here, and "it's just another specialty they have here" when asked why psychiatric eval requested. BRIEF HISTORY: 81yo CM with past psychiatric hx of depression admitted after found down and acutely encephalopathic presumed due to dehydration. Now improving and close to baseline per son Jarod (who was also present during interview). Patient has been living independently in his custodial and helps neighbors but did not show up as expected to meet a neighbor and take her to an appointment, which prompted family to check in. Patient last recalls being in his bed, feeling restless. Son states all was normal last weekend (5 days prior) when patient joined their family for dinner. During interview, patient endorsed feeling depressed, and admitted "I've done a lot in my life...I'm ready to go home...what does that mean? I'm not going to DO anything...how would I do that?...But I do think, is this all there is?...I do anything...I don't have hobbies, I don't feel like doing anything..." When asked what would be different for him not to feel that way, he responded, "if I were still ...but that ended a while back..." Talked of his son Jarod having his family and children and being busy with his life, and listed several other losses, including his older brother Danish 15yr ago who was like a patriarch in the family, and having no contact with younger brother Manolo after a falling out at that time. 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 "I've done a lot in my life...but I could've done a lot more..." Consistently denied any plan or intent to harm himself. Has been caring for self independently. GERIATRIC DEPRESSION SCALE 7/15, which is suggestive of depression. Patient responded positively for having dropped many activities/interests, feeling his life was empty, often gets bored and helpless, preferring to stay home, not feeling full of energy, and not feeling it is wonderful to be alive now. Responses were also noting he did feel satisfied with his life and felt happy most of the time, and did not feel hopeless. Patient endorsed +depr mood, difficulty sleeping, +anhedonia, +/-guilt, low energy, +passive suicidal thoughts, +helpless, +/-worthless, but not hopeless feelings. It was not clear how his appetite has been or concentration, altho both seem decreased. He denied any psychotic symptoms or history of such, and denied feeling anxious. He believes he is "sharp as a tack" and did not feel he had any thinking or memory difficulties, despite MoCA score of 14/30 as per speech therapy evaluation. Son states he and are now realizing patient may not have been as independent as they had thought. 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 Patient stated, "I'm not sure, I don't think so" that he just stopped oral intake to passively. Seemed he had not taken medications for a few days prior to admission, however. No evidence for any over- or under- taking medications, nor any evidence or history of falls or other trauma. PAST PSYCHIATRIC HISTORY: No prior inpatient or outpatient psychiatric treatment, although per son has been treated for depression after brother 15 years ago, and thinks he's been on an antidepressant medication for a while to help sleep. No past history of attempts to harm self. *Researched with pharmacist- patient on TRAZODONE 100mg x 4 years as per [facility] pharmacy. SUBSTANCE USE HISTORY: denied FAMILY PSYCHIATRIC HX: 1 son with depression (Jarod's brother). Patient's mother may have had depression as well. PAST MEDICAL HISTORY: peripheral neuropathy, past history of prostate CA, arthritis, HTN HOME MEDICATIONS: Tramadol 100mg tid, Gabapentin 300mg tid, Lisinopril/HCTZ, Celebrex also Trazodone 100mg QHS SOCIAL HISTORY: From [place], son of [place] immigrants, in [place] since 1962. Graduated [employer] in '60s. 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 Lives independently in senior housing. Extended family still in [place]. Has 2 sons. Son Clayton and his live nearby, with their 2 daughters ages 14,16 whom patient is very close to. since >40yrs. Oldest brother Danish 15yr ago (patient still tearful about this). Has 2 younger siblings, only maintains contact with one. Denies having any hobbies. Used to enjoy routine of taking granddaughters out for ice cream every Wednesday, no longer doing so because one drives now. ASSESSMENT: 81yo with apparent past psychiatric history of depression, admitted medically for encephalopathy related to metabolic changes and dehydration, no acute findings on brain MRI but with at least moderate atrophy. Clinically appears depressed and endorses some neurovegetative symptoms of depression, including passive suicidal ideation, but no plan/intent to harm himself. Depression can certainly worsen his cognition, with speech therapy scoring MoCA 14/30 on 01/24. DIAGNOSIS: Major Depressive Disorder, recurrent, severe Neurocognitive Disorder, unspecified RECOMMENDATIONS: -Does not meet criteria for M-1 involuntary psychiatric hold, or involuntary psychiatric hospitalization. -Son states he talked with his and both are realizing patient may not be doing as well living independently as they thought, and plan to have patient move into their home. Patient does state he is looking forward to this and is happy to do so. -Regarding medications, due to evidence of impaired cognition and elderly status , would avoid any medications which could potentially further impair cognition, including general categories of anticholinergics, narcotics, or benzodiazepines. In discussion with hospitalist , Tramadol 100mg tid has been discontinued. Also, Trazodone 100mg was not restarted on admission, but has been recently resumed at 50mg HS for sleep. I would support this for sleep, it is not going to be that beneficial for depression, however. -Recommend trial of Mirtazapine 7.5mg qhs for depression which will also help with sleep and appetite. Could start while inpatient or outpatient and follow- up with PCP. This can be up titrated to 15mg, and if beneficial, Trazodone could be tapered to discontinuation or just prn use to simplify medications. Would benefit from outpatient psychiatrist and outpatient therapy, if possible. -Recommend interval reassessment of cognition, seems notably improved as hospital course progressed, and reasonable to expect further improvements as patients mood improves. Also would help with determining baseline functioning when stable and baseline level of care needed, as recommendations varied from PT , OT, ST evaluations during current inpatient stay, including up to 12/10 supervision. -Recommend patient use a pill organizer. Son plans to supervise medications after discharge. -If suicidality increases or depression not improving with psychosocial modifications and medication changes, would have family contact mental health crisis or 911 or have patient return to ER for evaluation and consider for inpatient psychiatric treatment.
--- NOTE | 2017-01-26 09:22 | PDIAF ---
- Diagnosis Diagnosis: depression, chronic pain, ?dementia Code Status: Full Code - Medication Management Discharge Medications: Medications to Continue on Transfer Lisinopril/Hydrochlorothiazide [Lisinopril-Hctz 10-12.5 mg Tab] 1 each PO DAILY 01/22/17 [Last Taken Unknown] celeCOXIB [Celebrex (*)] 200 mg PO DAILY PRN 01/22/17 [Last Taken Unknown] Acetaminophen [Tylenol 325mg (*)] 650 mg PO Q4HRS PRN tab 01/26/17 [Last Taken Unknown] Gabapentin [Neurontin 300 MG (*)] 300 mg PO BID #30 01/26/17 [Last Taken Unknown ] traZODone [traZODONE 100MG (*)] 50 mg PO HS #0 01/26/17 [Last Taken Unknown] Discharge Medications: Refer to the Discharge Home Medication list for PRN reason. PICC Care - Routine: N/A - Orders Services needed: Home Care, Certified Data Entry Machine Operator, Physical Therapy, Occupational Therapy, Speech Language Pathologist Home Care Face to Face: I certify that this patient was under my care and that I had the required [id number] encounter meeting the encounter requirements on the discharge day. My findings support the fact that the patient is homebound as defined in Home Care Face to Face Continued: CMS Chapter 7 Medicare Benefits Manual 30.1.1 , The condition of the patient is such that there exists a normal inability to leave home and consequently, leaving home would require a considerable and taxing effort. Diet Recommendation: no restrictions on diet - Follow Up Care Current Providers and Referrals: Billy Keller MD [Medical Doctor] - Alfred Keller MD [Primary Care Provider] - As per Instructions
--- NOTE | 2017-01-26 09:23 | PDIAF ---
- Diagnosis Diagnosis: depression, chronic pain, ?dementia Code Status: Full Code - Medication Management Discharge Medications: Medications to Continue on Transfer Lisinopril/Hydrochlorothiazide [Lisinopril-Hctz 10-12.5 mg Tab] 1 each PO DAILY 01/22/17 [Last Taken Unknown] celeCOXIB [Celebrex (*)] 200 mg PO DAILY PRN 01/22/17 [Last Taken Unknown] Acetaminophen [Tylenol 325mg (*)] 650 mg PO Q4HRS PRN tab 01/26/17 [Last Taken Unknown] Gabapentin [Neurontin 300 MG (*)] 300 mg PO BID #30 01/26/17 [Last Taken Unknown ] MIRTAZAPINE [Remeron 7.5 mg] 7.5 mg PO HS #30 tablet 01/26/17 [Last Taken Unknown] traZODone [traZODONE 100MG (*)] 50 mg PO HS #0 01/26/17 [Last Taken Unknown] Discharge Medications: Refer to the Discharge Home Medication list for PRN reason. PICC Care - Routine: N/A - Orders Services needed: Home Care, Certified Enterprise Cloud Architect, Physical Therapy, Occupational Therapy, Speech Language Pathologist Home Care Face to Face: I certify that this patient was under my care and that I had the required [id number] encounter meeting the encounter requirements on the discharge day. My findings support the fact that the patient is homebound as defined in Home Care Face to Face Continued: CMS Chapter 7 Medicare Benefits Manual 30.1.1 , The condition of the patient is such that there exists a normal inability to leave home and consequently, leaving home would require a considerable and taxing effort. Diet Recommendation: no restrictions on diet - Follow Up Care Current Providers and Referrals: Billy Keller MD [Medical Doctor] - Alfred Keller MD [Primary Care Provider] - As per Instructions
[2017-01-26] MEDS: ENOXAPARIN 40 MG/0.4 ML SYR SC SCH (09:50)
[2017-01-26] MEDS: LIDOCAINE 5% 1 EA PATCH TD SCH (09:50)
[2017-01-26] MEDS: LISINOPRIL/HCTZ 10/12.5 MG 1 EA TAB PO SCH (09:50)
[2017-01-26] MEDS: POTASSIUM CL 20 MEQ TAB PO SCH (09:51)
--- NOTE | 2017-01-26 09:51 | NEUROPROG ---
Assessment: [id number] CC: Dr. Paloma Wiggins consulted for altered mental status. HPI: The patient was noted to be in his normal state of health on 01/17/17. He was found by his son on 01/22/17 in bed confused. No focal neurologic deficits were seen. Pt was taken to [facility] ER on 01/22/17 and admitted for confusion felt to be secondary to dehydration and possibly polypharmacy (pt on tramadol for chronic pain). His confusion improved. On 01/24/17 he was noted to be more orientated but was found to be severely depressed. It was felt he may have voluntarily decided to stop eating and drinking so a mental health consult was placed. He was also noted to have difficulties completing a mental status test. He is followed by Dr. Keller as an outpatient. I saw the patient on 01/26/17 and confirmed the above history. PMHx: PRCA, peripheral neuropathy, HTN, chronic pain due to arthritis Home Meds: tramadol, celebrex, lisinopril/HCTZ, gabapentin, SHx: no tobacco FHx: son is healthy ROS: Pt denied acute fever, total vision loss, active severe chest pain, respiratory failure, total body severe rash, total bowel/bladder incontinence, psychosis, active seizures, or active bleeding O: VS reviewed General: Alert Eyes: Fundoscopic exam not able to visualize optic disks CV: Heart RRR, no murmur, no carotid bruit Lungs: Clear to auscultation bilaterally, no rhonchi or rales Neuro: - Mental: . Oriented x person/place/date . concentration appears normal . speech fluency/comprehension normal . memory appears normal . fund of knowledge appear intact - Cranial Nerves: . II: PERRL, VFFTC . III/IV/: EOMI, no nystagmus, normal smooth pursuits, no Ptosis . V: facial sensation intact to LT . VII: face symmetric to eye closure and smile . VIII: hearing intact to conversation . IX/X: uvula raises symmetrically . XI: SCM 5/5 B/L strength . XII: tongue protrudes midline w/nl strength - Motor: . Tone: normal tone in all 4 extremity . Strength: no pronator drift, strength 5-/5 throughout (B/L delt, bic, tri , hand rack production worker, hf/he, df/pf) due to generalized tiredness but no focal weakness - Reflexes: B/L bic/BR/patella 2/4 - Sensory: all 4 extremity intact to light touch - Coord: [id number] wnl, NOA wnl, chit-to-pwtx wnl - Gait: deferred Labs: 01/22/17- TSH wnl Rads: 01/22/17- Brain MRI w/o con: no acute intracranial changes, moderate atrophy (I personally visualized the images on 01/26/17) Assessment: 1. Memory Disturbance: Brain MRI shows no significant abnormality on 01/22/17 and neurologic exam on 01/26/17 is non-focal. Unable to assess underlying dementia in setting of recent acute confusional state. Depression also likely involved. Pt will need to recover and be assessed in outpatient setting. 2. Depression 3. Chronic Pain Plan: - Agree with psychiatric consult - F/U with Dr. Keller in outpatient setting (Pts neurologist) Neurology will sign off. Objective: Vital Signs Temp Pulse Resp BP Pulse Ox 36.6 C 81 16 106/71 94 01/25/17 23:20 01/25/17 23:20 01/25/17 23:20 01/25/17 23:20 01/25/17 23:20 Laboratory Results 01/26/17 08:28 01/25/17 01/26/17 01/27/17 05:59 05:59 05:59 Intake Total 1350 650 Output Total 500 Balance 850 650 PT 14.7 SEC (12.0-15.0) 01/22/17 16:20 INR 1.15 (0.83-1.16) 01/22/17 16:20 Allergies/Adverse Reactions: No Known Allergies Allergy (Verified 01/22/17 16:05)
--- NOTE | 2017-01-26 09:51 | NEUROPROG ---
Assessment: [id number] CC: Dr. Paloma Wiggins consulted for altered mental status. HPI: The patient was noted to be in his normal state of health on 01/17/17. He was found by his son on 01/22/17 in bed confused. No focal neurologic deficits were seen. Pt was taken to [facility] ER on 01/22/17 and admitted for confusion felt to be secondary to dehydration and possibly polypharmacy (pt on tramadol for chronic pain). His confusion improved. On 01/24/17 he was noted to be more orientated but was found to be severely depressed. It was felt he may have voluntarily decided to stop eating and drinking so a mental health consult was placed. He was also noted to have difficulties completing a mental status test. He is followed by Dr. Keller as an outpatient. I saw the patient on 01/26/17 and confirmed the above history. PMHx: PRCA, peripheral neuropathy, HTN, chronic pain due to arthritis Home Meds: tramadol, celebrex, lisinopril/HCTZ, gabapentin, SHx: no tobacco FHx: son is healthy ROS: Pt denied acute fever, total vision loss, active severe chest pain, respiratory failure, total body severe rash, total bowel/bladder incontinence, psychosis, active seizures, or active bleeding O: VS reviewed General: Alert Eyes: Fundoscopic exam not able to visualize optic disks CV: Heart RRR, no murmur, no carotid bruit Lungs: Clear to auscultation bilaterally, no rhonchi or rales Neuro: - Mental: . Oriented x person/place/date . concentration appears normal . speech fluency/comprehension normal . memory appears normal . fund of knowledge appear intact - Cranial Nerves: . II: PERRL, VFFTC . III/IV/: EOMI, no nystagmus, normal smooth pursuits, no Ptosis . V: facial sensation intact to LT . VII: face symmetric to eye closure and smile . VIII: hearing intact to conversation . IX/X: uvula raises symmetrically . XI: SCM 5/5 B/L strength . XII: tongue protrudes midline w/nl strength - Motor: . Tone: normal tone in all 4 extremity . Strength: no pronator drift, strength 5-/5 throughout (B/L delt, bic, tri , hand tile layer, hf/he, df/pf) due to generalized tiredness but no focal weakness - Reflexes: B/L bic/BR/patella 2/4 - Sensory: all 4 extremity intact to light touch - Coord: kdyrnj-bi-hadr wnl, NOA wnl, umfe-ai-wwtb wnl - Gait: deferred Labs: 01/22/17- TSH wnl Rads: 01/22/17- Brain MRI w/o con: no acute intracranial changes, moderate atrophy (I personally visualized the images on 01/26/17) Assessment: 1. Memory Disturbance: Brain MRI shows no significant abnormality on 01/22/17 and neurologic exam on 01/26/17 is non-focal. Unable to assess underlying dementia in setting of recent acute confusional state. Depression also likely involved. Pt will need to recover and be assessed in outpatient setting. 2. Depression 3. Chronic Pain Plan: - Agree with psychiatric consult - F/U with Dr. Keller in outpatient setting (Pts neurologist) Neurology will sign off. Objective: Vital Signs Temp Pulse Resp BP Pulse Ox 36.6 C 81 16 106/71 94 01/25/17 23:20 01/25/17 23:20 01/25/17 23:20 01/25/17 23:20 01/25/17 23:20 Laboratory Results 01/26/17 08:28 01/25/17 01/26/17 01/27/17 05:59 05:59 05:59 Intake Total 1350 650 Output Total 500 Balance 850 650 PT 14.7 SEC (12.0-15.0) 01/22/17 16:20 INR 1.15 (0.83-1.16) 01/22/17 16:20 Allergies/Adverse Reactions: No Known Allergies Allergy (Verified 01/22/17 16:05)
--- NOTE | 2017-01-26 09:51 | NEUROPROG ---
Assessment: [id number] CC: Dr. Paloma Wiggins consulted for altered mental status. HPI: The patient was noted to be in his normal state of health on 01/17/17. He was found by his son on 01/22/17 in bed confused. No focal neurologic deficits were seen. Pt was taken to [facility] ER on 01/22/17 and admitted for confusion felt to be secondary to dehydration and possibly polypharmacy (pt on tramadol for chronic pain). His confusion improved. On 01/24/17 he was noted to be more orientated but was found to be severely depressed. It was felt he may have voluntarily decided to stop eating and drinking so a mental health consult was placed. He was also noted to have difficulties completing a mental status test. He is followed by Dr. Keller as an outpatient. I saw the patient on 01/26/17 and confirmed the above history. PMHx: PRCA, peripheral neuropathy, HTN, chronic pain due to arthritis Home Meds: tramadol, celebrex, lisinopril/HCTZ, gabapentin, SHx: no tobacco FHx: son is healthy ROS: Pt denied acute fever, total vision loss, active severe chest pain, respiratory failure, total body severe rash, total bowel/bladder incontinence, psychosis, active seizures, or active bleeding O: VS reviewed General: Alert Eyes: Fundoscopic exam not able to visualize optic disks CV: Heart RRR, no murmur, no carotid bruit Lungs: Clear to auscultation bilaterally, no rhonchi or rales Neuro: - Mental: . Oriented x person/place/date . concentration appears normal . speech fluency/comprehension normal . memory appears normal . fund of knowledge appear intact - Cranial Nerves: . II: PERRL, VFFTC . III/IV/: EOMI, no nystagmus, normal smooth pursuits, no Ptosis . V: facial sensation intact to LT . VII: face symmetric to eye closure and smile . VIII: hearing intact to conversation . IX/X: uvula raises symmetrically . XI: SCM 5/5 B/L strength . XII: tongue protrudes midline w/nl strength - Motor: . Tone: normal tone in all 4 extremity . Strength: no pronator drift, strength 5-/5 throughout (B/L delt, bic, tri , hand library sales consultant, hf/he, df/pf) due to generalized tiredness but no focal weakness - Reflexes: B/L bic/BR/patella 2/4 - Sensory: all 4 extremity intact to light touch - Coord: ffnrtz-ia-iiga wnl, NOA wnl, oapq-gz-qxal wnl - Gait: deferred Labs: 01/22/17- TSH wnl Rads: 01/22/17- Brain MRI w/o con: no acute intracranial changes, moderate atrophy (I personally visualized the images on 01/26/17) Assessment: 1. Memory Disturbance: Brain MRI shows no significant abnormality on 01/22/17 and neurologic exam on 01/26/17 is non-focal. Unable to assess underlying dementia in setting of recent acute confusional state. Depression also likely involved. Pt will need to recover and be assessed in outpatient setting. 2. Depression 3. Chronic Pain Plan: - Agree with psychiatric consult - F/U with Dr. Keller in outpatient setting (Pts neurologist) Neurology will sign off. Objective: Vital Signs Temp Pulse Resp BP Pulse Ox 36.6 C 81 16 106/71 94 01/25/17 23:20 01/25/17 23:20 01/25/17 23:20 01/25/17 23:20 01/25/17 23:20 Laboratory Results 01/26/17 08:28 01/25/17 01/26/17 01/27/17 05:59 05:59 05:59 Intake Total 1350 650 Output Total 500 Balance 850 650 PT 14.7 SEC (12.0-15.0) 01/22/17 16:20 INR 1.15 (0.83-1.16) 01/22/17 16:20 Allergies/Adverse Reactions: No Known Allergies Allergy (Verified 01/22/17 16:05)
--- NOTE | 2017-01-26 14:13 | ASMTCMCOM ---
CM Note CM Note Notes: Pt medically stable for d/c w [facility], discharging to pt son Jarod home at [address] [place] [address] for as long as necessary. Jarod will be able to provide 24/hr supervision for pt and will make f/u medical appts kaitlynn. Orders will be obtained via [employer]. Date Signed: 01/26/2017 02:12 PM Electronically Signed By:MILAGRO Manzanares
--- NOTE | 2017-01-26 14:13 | ASMTCMCOM ---
CM Note CM Note Notes: Pt medically stable for d/c w [facility], discharging to pt son Jarod home at [address] [place] [address] for as long as necessary. Jarod will be able to provide 24/hr supervision for pt and will make f/u medical appts kaitlynn. Orders will be obtained via [employer]. Date Signed: 01/26/2017 02:12 PM Electronically Signed By:MILAGRO Manzanares
--- NOTE | 2017-01-26 14:13 | ASDISCHSUM ---
Discharge Information Plan Status:Home with Home Health Medically Cleared to Leave: Discharge Date:01/26/2017 11:43 AM CM D/C Disposition:Home Health Service ADT D/C Disposition:Home Health Service Projected Discharge Date:01/26/2017 11:00 AM Transportation at D/C: Discharge Delay Reason: Follow-Up Date:01/26/2017 11:00 AM Discharge Slot: Final Diagnosis: Placement Information Referral Type:*Home Health Care Services Referral ID:[id number] Provider Name:[facility] Address 1:[address] [place] [address] Address 2: City:[place] Selection Factors: State:[place] Patient Contact Information Contact Name:ELIZABETH Relationship:Son Address: Work Phone: City:[place] Alternate Phone: [facility]/Zip Code:[place] [address] Email: Financial Information Financial Class: Primary Plan Desc:MEDICARE INPATIENT Primary Plan Number:[id number] Secondary Plan Desc:[facility] Secondary Plan Number:[id number] Assessment Information [facility] CM Progress Note CM Note CM Note Notes: Reviewed chart for discharge plan, pt's progress. Pt admitted w/ acute encephalopathy and acidosis, poss metabolic vs medication toxicity. Pt lives alone in an apartment; son and ninar-pp-cwj involved. PT rec home; OT rec home care vs SNF. Discharge needs remain TBD at this time. Pt confused today. CM will cont to follow for any potential needs. Current Discharge Plan: To be determined Date Signed: 01/23/2017 06:08 PM Electronically Signed By:Michelle Griggs RN [facility] CM Progress Note CM Note CM Note Notes: Pt admitted w/ acute encephalopathy. Pt has cleared today. Dr Wiggins states pt is profoundly depressed and had stopped eating and drinking because he "wants to ." Dr Wiggins made a psych eval for med mgmt. Pt lives alone in an apartment; son and isqya-dv-ndr involved. PT rec homecare, OT rec home care vs SNF and ST rec inpt rehab. Discharge needs remain TBD at this time. CM will wait for psych eval. CM will cont to follow for any potential needs. Date Signed: 01/24/2017 02:00 PM Electronically Signed By:Sandra Edmonds LCSW [facility] CM Progress Note CM Note CM Note Notes: Psych did see pt today, recs pending. Pt d/c to son home, needs [facility] and 12/10 supervision. Attempted to reach yared Olivera [phone], had to leave s on home ph and cell. Pt reports Jarod will be available in the morning. Pt likely d/c tomorow. CM to follow. Date Signed: 01/25/2017 04:47 PM Electronically Signed By:MILAGRO Manzanares [facility] CM Progress Note CM Note CM Note Notes: Pt medically stable for d/c w [facility], [place] [address] [facility] [address] for as long as necessary. Jarod will be able to provide 24/hr supervision for pt and will make f/u medical appts kaitlynn. Orders will be obtained via [employer]. Date Signed: 01/26/2017 02:12 PM Electronically Signed By:MILAGRO Manzanares Intervention Information Intervention Type:*Incorrect Registration Date of Service:01/22/2017 10:19 PM Patient Type:Observation Staff Member:ADINA Clinton, Zakia Hours:0.25 Discipline: Severity:1 (0-1 Hours) Comment:Registered inpatient; admit order writ ten observation status. Intervention Type:*IM-Signed Date of Service:01/26/2017 11:50 AM Patient Type:Inpatient Staff Member:Sofiya Bello Hours: Discipline: Severity: Comment:
--- NOTE | 2017-01-26 14:13 | ASDISCHSUM ---
Discharge Information Plan Status:Home with Home Health Medically Cleared to Leave: Discharge Date:01/26/2017 11:43 AM CM D/C Disposition:Home Health Service ADT D/C Disposition:Home Health Service Projected Discharge Date:01/26/2017 11:00 AM Transportation at D/C: Discharge Delay Reason: Follow-Up Date:01/26/2017 11:00 AM Discharge Slot: Final Diagnosis: Placement Information Referral Type:*Home Health Care Services Referral ID:[id number] Provider Name:[facility] Address 1:[address] [place] [address] Address 2: City:[place] Selection Factors: State:[place] Patient Contact Information Contact Name:ELIZABETH Relationship:Son Address: Work Phone: City:[place] Alternate Phone: [facility]/Zip Code:[place] [address] Email: Financial Information Financial Class: Primary Plan Desc:MEDICARE INPATIENT Primary Plan Number:[id number] Secondary Plan Desc:[facility] Secondary Plan Number:[id number] Assessment Information [facility] CM Progress Note CM Note CM Note Notes: Reviewed chart for discharge plan, pt's progress. Pt admitted w/ acute encephalopathy and acidosis, poss metabolic vs medication toxicity. Pt lives alone in an apartment; son and aotat-pg-fjr involved. PT rec home; OT rec home care vs SNF. Discharge needs remain TBD at this time. Pt confused today. CM will cont to follow for any potential needs. Current Discharge Plan: To be determined Date Signed: 01/23/2017 06:08 PM Electronically Signed By:Michelle Griggs RN [facility] CM Progress Note CM Note CM Note Notes: Pt admitted w/ acute encephalopathy. Pt has cleared today. Dr Wiggins states pt is profoundly depressed and had stopped eating and drinking because he "wants to ." Dr Wiggins made a psych eval for med mgmt. Pt lives alone in an apartment; son and inspj-yy-dtz involved. PT rec homecare, OT rec home care vs SNF and ST rec inpt rehab. Discharge needs remain TBD at this time. CM will wait for psych eval. CM will cont to follow for any potential needs. Date Signed: 01/24/2017 02:00 PM Electronically Signed By:Sandra Edmonds LCSW [facility] CM Progress Note CM Note CM Note Notes: Psych did see pt today, recs pending. Pt d/c to son home, needs [facility] and 12/10 supervision. Attempted to reach yared Olivera [phone], had to leave s on home ph and cell. Pt reports Jarod will be available in the morning. Pt likely d/c tomorow. CM to follow. Date Signed: 01/25/2017 04:47 PM Electronically Signed By:MILAGRO Manzanares [facility] CM Progress Note CM Note CM Note Notes: Pt medically stable for d/c w [facility], [place] [address] [facility] [address] for as long as necessary. Jarod will be able to provide 24/hr supervision for pt and will make f/u medical appts kaitlynn. Orders will be obtained via [employer]. Date Signed: 01/26/2017 02:12 PM Electronically Signed By:MILAGRO Manzanares Intervention Information Intervention Type:*Incorrect Registration Date of Service:01/22/2017 10:19 PM Patient Type:Observation Staff Member:ADINA Clinton, Zakia Hours:0.25 Discipline: Severity:1 (0-1 Hours) Comment:Registered inpatient; admit order writ ten observation status. Intervention Type:*IM-Signed Date of Service:01/26/2017 11:50 AM Patient Type:Inpatient Staff Member:Sofiya Bello Hours: Discipline: Severity: Comment:
--- NOTE | 2017-01-26 14:13 | ASDISCHSUM ---
Discharge Information Plan Status:Home with Home Health Medically Cleared to Leave: Discharge Date:01/26/2017 11:43 AM CM D/C Disposition:Home Health Service ADT D/C Disposition:Home Health Service Projected Discharge Date:01/26/2017 11:00 AM Transportation at D/C: Discharge Delay Reason: Follow-Up Date:01/26/2017 11:00 AM Discharge Slot: Final Diagnosis: Placement Information Referral Type:*Home Health Care Services Referral ID:[id number] Provider Name:[facility] Address 1:[address] [place] [address] Address 2: City:[place] Selection Factors: State:[place] Patient Contact Information Contact Name:ELIZABETH Relationship:Son Address: Work Phone: City:[place] Alternate Phone: [facility]/Zip Code:[place] [address] Email: Financial Information Financial Class: Primary Plan Desc:MEDICARE INPATIENT Primary Plan Number:[id number] Secondary Plan Desc:[facility] Secondary Plan Number:[id number] Assessment Information [facility] CM Progress Note CM Note CM Note Notes: Reviewed chart for discharge plan, pt's progress. Pt admitted w/ acute encephalopathy and acidosis, poss metabolic vs medication toxicity. Pt lives alone in an apartment; son and sjwae-bh-ewy involved. PT rec home; OT rec home care vs SNF. Discharge needs remain TBD at this time. Pt confused today. CM will cont to follow for any potential needs. Current Discharge Plan: To be determined Date Signed: 01/23/2017 06:08 PM Electronically Signed By:Michelle Griggs RN [facility] CM Progress Note CM Note CM Note Notes: Pt admitted w/ acute encephalopathy. Pt has cleared today. Dr Wiggins states pt is profoundly depressed and had stopped eating and drinking because he "wants to ." Dr Wiggins made a psych eval for med mgmt. Pt lives alone in an apartment; son and faxfq-dv-grt involved. PT rec homecare, OT rec home care vs SNF and ST rec inpt rehab. Discharge needs remain TBD at this time. CM will wait for psych eval. CM will cont to follow for any potential needs. Date Signed: 01/24/2017 02:00 PM Electronically Signed By:Sandra Edmonds LCSW [facility] CM Progress Note CM Note CM Note Notes: Psych did see pt today, recs pending. Pt d/c to son home, needs [facility] and 12/10 supervision. Attempted to reach yared Olivera [phone], had to leave s on home ph and cell. Pt reports Jarod will be available in the morning. Pt likely d/c tomorow. CM to follow. Date Signed: 01/25/2017 04:47 PM Electronically Signed By:MILAGRO Manzanares [facility] CM Progress Note CM Note CM Note Notes: Pt medically stable for d/c w [facility], [place] [address] [facility] [address] for as long as necessary. Jarod will be able to provide 24/hr supervision for pt and will make f/u medical appts kaitlynn. Orders will be obtained via [employer]. Date Signed: 01/26/2017 02:12 PM Electronically Signed By:MILAGRO Manzanares Intervention Information Intervention Type:*Incorrect Registration Date of Service:01/22/2017 10:19 PM Patient Type:Observation Staff Member:ADINA Clinton, Zakia Hours:0.25 Discipline: Severity:1 (0-1 Hours) Comment:Registered inpatient; admit order writ ten observation status. Intervention Type:*IM-Signed Date of Service:01/26/2017 11:50 AM Patient Type:Inpatient Staff Member:Sofiya Bello Hours: Discipline: Severity: Comment:
--- NOTE | 2017-01-26 14:13 | ASMTCMCOM ---
CM Note CM Note Notes: Pt medically stable for d/c w [facility], discharging to pt son Jarod home at [address] [place] [address] for as long as necessary. Jarod will be able to provide 24/hr supervision for pt and will make f/u medical appts kaitlynn. Orders will be obtained via [employer]. Date Signed: 01/26/2017 02:12 PM Electronically Signed By:MILAGRO Manzanares
--- NOTE | 2017-01-27 00:02 | GDS ---
[f rep st] DISCHARGE SUMMARY DISCHARGE DIAGNOSES: 1. Acute encephalopathy, resolved. 2. Acute kidney injury secondary to volume depletion, resolved. 3. Anion gap metabolic acidosis secondary to volume depletion, resolved. 4. Rhabdomyolysis, mild, resolved. 5. Cognitive impairment. 6. Possible depression. 7. Chronic pain secondary to arthritis. 8. Hypertension. 9. Microscopic hematuria with history of prostate cancer. CONSULTANTS: 1. Dr. Shari Wright, Psychiatry. 2. Dr. Goldy Javier, Neurology. HISTORY: For details, please see dictated history and physical dated January 22, 2017. In brief, e patient is an 81-year-old man with a history of chronic pain, hypertension, and peripheral neuropat hy, who presents to the emergency department with altered mental status. He was last seen in his [facility] on January 17. Several days had passed when his family and neighbors had not seen him, so the intellectual property counsel was called and entered the patient's residence and found him lying on e bed in a confused state. He was brought to the emergency department and admitted for further evalu ation. HOSPITAL COURSE: The patient admitted to the medical-surgical unit. He was quite encephalopathic on admission. This was thought to be multifactorial related to volume depletion, in addition to polyph armacy. His high-dose tramadol was held and ultimately discontinued. Gabapentin was also held. He was aggressively hydrated with IV fluids. His mentation improved. He woke up and stated that he was very depressed and wished to . It sounds as though he aimed to close his eyes at home, stop eati ng and drinking, and await for . He denies active suicidal ideation, but feels he is near the e nd of life. However, he has no active illness that is going to cause his . Psychiatry consult was obtained and recommended initiation of low-dose Remeron. His tramadol was stopped as I think thi s may put him at risk for confusional state, and he may be taking it inappropriately. He is resumed on his gabapentin at discharge at a lower dose. His son has been present during the hospitalization, and the patient will be discharged to live with his son so he has closer family support. He has als o arranged to have home health care, including PT, OT, MELTER ASSISTANT, as well as private caregivers as it is re commended he have 24 hours supervision. The son understands this and will work on a private [employer] plan. Speech evaluation was obtained, and cognitive evaluation was performed. He scored 14/30 on the MoCA. His brain MRI showed moderate atrophy and some suspicion for underlying dementia process a lauren; however, it is possible his depression is contributing to his poor cognitive function. He obi ld have close outpatient followup with his primary care and neurologist. DISPOSITION: Patient is discharged home to live with his son in stable condition. FOLLOWUP: 1. Dr. Alfred Keller, primary care. 2. Dr. Billy Keller, Neurology. 3. The patient should be referred to Urology for further evaluation of his microscopic hematuria giv en his history of prostate cancer. DISCHARGE MEDICATIONS: Please see [facility] for complete updated outpatient medication list. New med ications on discharge include Tylenol 650 mg p.o. q.4 hours p.r.n. for pain. Remeron 7.5 mg p.o. q.h .s., #30, no refills. He will continue his Celebrex and lisinopril/HCTZ. I decreased his gabapentin to 300 mg p.o. b.i.d., and I decreased his trazodone to 50 mg p.o. q.h.s. I discontinued his tramad ol in favor of Tylenol and Celebrex for pain control. /[id number]/MODL
--- NOTE | 2017-01-27 00:02 | GDS ---
[f rep st] DISCHARGE SUMMARY DISCHARGE DIAGNOSES: 1. Acute encephalopathy, resolved. 2. Acute kidney injury secondary to volume depletion, resolved. 3. Anion gap metabolic acidosis secondary to volume depletion, resolved. 4. Rhabdomyolysis, mild, resolved. 5. Cognitive impairment. 6. Possible depression. 7. Chronic pain secondary to arthritis. 8. Hypertension. 9. Microscopic hematuria with history of prostate cancer. CONSULTANTS: 1. Dr. Shari Wright, Psychiatry. 2. Dr. Goldy Javier, Neurology. HISTORY: For details, please see dictated history and physical dated January 22, 2017. In brief, e patient is an 81-year-old man with a history of chronic pain, hypertension, and peripheral neuropat hy, who presents to the emergency department with altered mental status. He was last seen in his [facility] on January 17. Several days had passed when his family and neighbors had not seen him, so the housing assistant property manager was called and entered the patient's residence and found him lying on e bed in a confused state. He was brought to the emergency department and admitted for further evalu ation. HOSPITAL COURSE: The patient admitted to the medical-surgical unit. He was quite encephalopathic on admission. This was thought to be multifactorial related to volume depletion, in addition to polyph armacy. His high-dose tramadol was held and ultimately discontinued. Gabapentin was also held. He was aggressively hydrated with IV fluids. His mentation improved. He woke up and stated that he was very depressed and wished to . It sounds as though he aimed to close his eyes at home, stop eati ng and drinking, and await for . He denies active suicidal ideation, but feels he is near the e nd of life. However, he has no active illness that is going to cause his . Psychiatry consult was obtained and recommended initiation of low-dose Remeron. His tramadol was stopped as I think thi s may put him at risk for confusional state, and he may be taking it inappropriately. He is resumed on his gabapentin at discharge at a lower dose. His son has been present during the hospitalization, and the patient will be discharged to live with his son so he has closer family support. He has als o arranged to have home health care, including PT, OT, JOB PRESS FEEDER, as well as private caregivers as it is re commended he have 24 hours supervision. The son understands this and will work on a private [employer] plan. Speech evaluation was obtained, and cognitive evaluation was performed. He scored 14/30 on the MoCA. His brain MRI showed moderate atrophy and some suspicion for underlying dementia process a lauren; however, it is possible his depression is contributing to his poor cognitive function. He obi ld have close outpatient followup with his primary care and neurologist. DISPOSITION: Patient is discharged home to live with his son in stable condition. FOLLOWUP: 1. Dr. Alfred Keller, primary care. 2. Dr. Billy Keller, Neurology. 3. The patient should be referred to Urology for further evaluation of his microscopic hematuria giv en his history of prostate cancer. DISCHARGE MEDICATIONS: Please see [facility] for complete updated outpatient medication list. New med ications on discharge include Tylenol 650 mg p.o. q.4 hours p.r.n. for pain. Remeron 7.5 mg p.o. q.h .s., #30, no refills. He will continue his Celebrex and lisinopril/HCTZ. I decreased his gabapentin to 300 mg p.o. b.i.d., and I decreased his trazodone to 50 mg p.o. q.h.s. I discontinued his tramad ol in favor of Tylenol and Celebrex for pain control. /[id number]/MODL
--- NOTE | 2017-01-27 00:02 | GDS ---
[f rep st] DISCHARGE SUMMARY DISCHARGE DIAGNOSES: 1. Acute encephalopathy, resolved. 2. Acute kidney injury secondary to volume depletion, resolved. 3. Anion gap metabolic acidosis secondary to volume depletion, resolved. 4. Rhabdomyolysis, mild, resolved. 5. Cognitive impairment. 6. Possible depression. 7. Chronic pain secondary to arthritis. 8. Hypertension. 9. Microscopic hematuria with history of prostate cancer. CONSULTANTS: 1. Dr. Shari Wright, Psychiatry. 2. Dr. Goldy Javier, Neurology. HISTORY: For details, please see dictated history and physical dated January 22, 2017. In brief, e patient is an 81-year-old man with a history of chronic pain, hypertension, and peripheral neuropat hy, who presents to the emergency department with altered mental status. He was [facility] seen [facility]. Several days had passed when his family and neighbors had not seen him, so the environmental property assessor was called and entered the patient's residence and found him lying on e bed in a confused state. He was brought to the emergency department and admitted for further evalu ation. HOSPITAL COURSE: The patient admitted to the medical-surgical unit. He was quite encephalopathic on admission. This was thought to be multifactorial related to volume depletion, in addition to polyph armacy. His high-dose tramadol was held and ultimately discontinued. Gabapentin was also held. He was aggressively hydrated with IV fluids. His mentation improved. He woke up and stated that he was very depressed and wished to . It sounds as though he aimed to close his eyes at home, stop eati ng and drinking, and await for . He denies active suicidal ideation, but feels he is near the e nd of life. However, he has no active illness that is going to cause his . Psychiatry consult was obtained and recommended initiation of low-dose Remeron. His tramadol was stopped as I think thi s may put him at risk for confusional state, and he may be taking it inappropriately. He is resumed on his gabapentin at discharge at a lower dose. His son has been present during the hospitalization, and the patient will be discharged to live with his son so he has closer family support. He has als o arranged to have home health care, including PT, OT, GUEST RELATIONS OFFICER, as well as private caregivers as it is re commended he have 24 hours supervision. The son understands this and will work on a private [employer] plan. Speech evaluation was obtained, and cognitive evaluation was performed. He scored 14/30 on the MoCA. His brain MRI showed moderate atrophy and some suspicion for underlying dementia process a lauren; however, it is possible his depression is contributing to his poor cognitive function. He obi ld have close outpatient followup with his primary care and neurologist. DISPOSITION: Patient is discharged home to live with his son in stable condition. FOLLOWUP: 1. Dr. Alfred Keller, primary care. 2. Dr. Billy Keller, Neurology. 3. The patient should be referred to Urology for further evaluation of his microscopic hematuria giv en his history of prostate cancer. DISCHARGE MEDICATIONS: Please see [facility] for complete updated outpatient medication list. New med ications on discharge include Tylenol 650 mg p.o. q.4 hours p.r.n. for pain. Remeron 7.5 mg p.o. q.h .s., #30, no refills. He will continue his Celebrex and lisinopril/HCTZ. I decreased his gabapentin to 300 mg p.o. b.i.d., and I decreased his trazodone to 50 mg p.o. q.h.s. I discontinued his tramad ol in favor of Tylenol and Celebrex for pain control. /[id number]/MODL
== END 2017-01-26 11:43 | disposition home health service (06) | DRG 71 ==
LOC: INTOOBSV 19:17 → F3N 20:41 → OBSVTOIN 01-23 09:51
PROVIDERS: ADMIT Family Medicine; ATTEND Family Medicine
DX: G93.41 Metabolic encephalopathy (principal); N17.9 Acute kidney failure, unspecified; E87.2 Acidosis; M62.82 Rhabdomyolysis; E86.0 Dehydration; F32.9 Major depressive disorder, single episode, unspecified; G31.84 Mild cognitive impairment of uncertain or unknown etiology; G89.29 Other chronic pain; I10 Essential (primary) hypertension; R31.29 Other microscopic hematuria; Z85.46 Personal history of malignant neoplasm of prostate; T40.4X5A Adverse effect of other synthetic narcotics, initial encounter; G62.9 Polyneuropathy, unspecified; R19.7 Diarrhea, unspecified; E87.6 Hypokalemia
CPT/HCPCS: 80305; 82947-QW; 92523-GN; 97112-GP; 97116-GP; 97161-GP; 97166-GO; 97530-GO; 97535-GO; G0378; G0480; G8978-GP-CJ; G8979-GP-CI; G8987-GO-CK; G8988-GO-CI; G9165-GN-CK; G9166-GN-CI; J1650